=== PATIENT | male | born 1975 | race Hispanic/Latino ===

== ENCOUNTER 2021-10-02 20:00 | Emergency (ER) | payer OTHER ==
[~2021-10-02] VITALS: Ht 175.3 cm; Wt 85.3 kg
[2021-10-02] MEDS ORDERED: HYDROCODONE/APAP 10MG-325MG TAB PO ONE (20:30)
[2021-10-02] MEDS ORDERED: HYDROCODONE/APAP 10MG-325MG TAB ONE (20:42)
[2021-10-02] MEDS ORDERED: NAPROXEN500 M1 PO (21:59)
[2021-10-02] MEDS ORDERED: ACETAMINOPHEN-1 EAC4 PO (21:59)
== END 2021-10-02 22:04 | disposition home or self-care (01) ==
LOC: ER 20:22
DX: S20.212A Contusion of left front wall of thorax, initial encounter (principal); W01.198A Fall on same level from slipping, tripping and stumbling with subsequent striking against other object, initial encounter; Y93.01 Activity, walking, marching and hiking; Y92.008 Other place in unspecified non-institutional (private) residence as the place of occurrence of the external cause
CPT/HCPCS: 71101; 99283